=== PATIENT | female | born 1950 | race Caucasian/White ===

== ENCOUNTER → 2017-11-02 | Outpatient (CLI) | payer MEDICARE ==
[~2017-11-02] MED LIST: METO-253 PO
--- NOTE | 2017-11-02 15:47 | RADIOLOGY IMAGING REPORT ---
FACILITY: [facility] - [place] PATIENT NAME: CYNTHIA GRACE : [id number] MR: [id number] V: [id number] EXAM DATE: ORDERING PHYSICIAN: KANU REYES TECHNOLOGIST: Kelly Bailey PROCEDURE:BILATERAL DIGITAL SCREENING MAMMOGRAM WITH CAD ASSISTED INTERPRETATION & 3D TOMOSYNTHESIS COMPARISON:Prior mammograms 11/01/16, 11/01/15, 10/29/14, 10/23/13, 05/15/12, 05/15/11. INDICATIONS:SCREENING FINDINGS: Moderately heterogeneous fibroglandular tissue is seen throughout the breasts. The parenchymal pattern has remained stable allowing for difference in mammographic technique & patient positioning. Multiple nodular densities are again seen throughout the breasts. There is no demonstration of malignant appearing mass, malignant appearing calcifications or other secondary sign of malignancy in either breast. DIAGNOSTIC CATEGORY 2--BENIGN FINDING. RECOMMENDATIONS: ROUTINE MAMMOGRAM AND CLINICAL EVALUATION. IMPRESSION: BIRADS 2: Benign finding. No significant abnormality is seen. Dictated by: Ledy White M.D. on 11/02/2017 at 15:33 Transcribed by: ISIAH on 11/02/2017 at 15:43 Approved by: Ledy White M.D. on 11/02/2017 at 15:46 [facility]
== END ==
LOC: MAMO 04:15
PROVIDERS: ATTEND Obstetrics & Gynecology
DX: Z12.31 Encounter for screening mammogram for malignant neoplasm of breast (principal)
CPT/HCPCS: 77063; 77067

== ENCOUNTER → 2018-11-22 | Outpatient (CLI) | payer MEDICARE ==
--- NOTE | 2018-11-27 13:50 | RADIOLOGY IMAGING REPORT ---
[facility] PATIENT NAME: CYNTHIA GRACE : [id number] MR: [id number] V: [id number] EXAM DATE: [id number] ORDERING PHYSICIAN: KANU REYES TECHNOLOGIST: Pat Cooper PROCEDURE: BILATERAL DIGITAL SCREENING MAMMOGRAM WITH CAD ASSISTED INTERPRETATION & 3D TOMOSYNTHESIS REASON FOR STUDY: Screening. FAMILY HISTORY OF BREAST CANCER: BREAST PROCEDURES/TREATMENTS: COMPARISON: 11/01/2016. VIEWS OBTAINED: 2D & 3D full field CC & MLO projections. BREAST DENSITY: Demonstrates scattered fibroglandular tissue elements. MAMMOGRAM FINDINGS: There are smooth bordered round masses in both the Right and Left breasts. The masses are unchanged in size from the prior studies. There is no evidence of a new mass. The largest mass on the Right measures approximately 9mm, unchanged. The largest mass on the Left measures 10mm, unchanged. There is no suspicious mass, calcification, or architectural distortion. IMPRESSION: BIRADS 2: Benign finding. DIAGNOSTIC CATEGORY 2--BENIGN FINDING. RECOMMENDATIONS: ROUTINE MAMMOGRAM AND CLINICAL EVALUATION IN 1YR. Dictated by: Last Story M.D. on 11/27/2018 at 8:35 Transcribed by: ISIAH on 11/27/2018 at 8:57 Approved by: Last Story M.D. on 11/27/2018 at 13:46 [facility]
== END ==
LOC: MAMO 04:01
PROVIDERS: ATTEND Obstetrics & Gynecology
DX: Z12.31 Encounter for screening mammogram for malignant neoplasm of breast (principal)
CPT/HCPCS: 77063; 77067